=== PATIENT | female | born 1995 | race Hispanic/Latino ===

== ENCOUNTER 2017-07-03 23:00 | Emergency (ER) | payer OTHER ==
[2017-07-03 23:00] VITALS: BMI 19.3
[2017-07-03 23:12] VITALS: BP 117/78; PULSE 96; RESP 16; TEMP 98.2; O2SAT 97
--- NOTE | 2017-07-04 00:34 | C.PDOC ---
History Of Present Illness 22 y/o female, otherwise healthy, c/o runny nose, sneezing, body aches, ear pain , sore throat, and chest pain with cough for 2 days. Patient also reports a subjective fever. Denies abdominal pain, nausea, vomiting, or any other complaints. Time Seen by Provider: 07/04/17 00:25 Chief Complaint (Nursing): Cough, Cold, Congestion History Per: Patient History/Exam Limitations: no limitations Onset/Duration Of Symptoms: Days (2) Current Symptoms Are (Timing): Still Present Location Of Pain: Ear(s), Throat, Diffuse Myalgias Associated Symptoms: Myalgias. denies: Nausea, Vomiting Ear Symptoms: Bilateral: Ear Pain Severity: Mild Recent travel outside of the [place]: No Additional History Per: Patient Past Medical History Reviewed: Historical Data, Nursing Documentation, Vital Signs Vital Signs: Last Vital Signs Temp 98.2 F 07/03/17 23:08 Pulse 96 H 07/03/17 23:08 Resp 16 07/03/17 23:08 BP 117/78 07/03/17 23:08 Pulse Ox 97 07/04/17 02:57 Surgical History: Tonsillectomy Family History: States: Unknown Family Hx - Social History Hx Tobacco Use: Yes Hx Alcohol Use: Yes Hx Substance Use: Yes - Immunization History Hx Tetanus Toxoid Vaccination: Yes Hx Influenza Vaccination: No Hx Pneumococcal Vaccination: No Review Of Systems Constitutional: Positive for: Fever (Subjective), Other (Body aches) ENT: Positive for: Ear Pain, Nose Discharge, Throat Pain, Other (Sneezing) Cardiovascular: Positive for: Chest Pain Respiratory: Positive for: Cough Gastrointestinal: Negative for: Nausea, Vomiting, Abdominal Pain Physical Exam - Physical Exam Appears: Non-toxic, No Acute Distress Skin: Warm, Dry Head: Atraumatic, Normacephalic Ear(s): Bilateral: Normal Oral Mucosa: Moist Throat: Normal, No Erythema, No Exudate Neck: Supple Cardiovascular: Rhythm Regular Respiratory: Normal Breath Sounds, No Rales, No Rhonchi, No Wheezing Gastrointestinal/Abdominal: Soft, No Tenderness Neurological/Psych: Oriented x3, Normal Speech, Normal Cognition ED Course And Treatment O2 Sat by Pulse Oximetry: 97 (RA) Pulse Ox Interpretation: Normal Medical Decision Making Medical Decision Making: Impression: 22 y/o female, otherwise healthy, c/o runny nose, sneezing, body aches, ear pain, sore throat, and chest pain with cough for 2 days. Plans: * Tylenol Patient is in no acute distress and was instructed to follow up with PMD for further evaluation and to return if symptoms worsens. Disposition Counseled Patient/Family Regarding: Diagnosis, Need For Followup - Disposition Referrals: Ty Dunlap MD [Staff Provider] - [facility] [Outside] Disposition: HOME/ ROUTINE Disposition Time: 00:33 Condition: STABLE Additional Instructions: Take Tylenol or Motrin every 6 hours for pain, fever, body aches. Drink increased fluids. Robitussen DM or Mucinex for cough. Best rest. Follow up in Medical clinic. Instructions: Upper Respiratory Infection (ED) Forms: General Discharge Instructions, [facility] (Serbian), Work Excuse - Clinical Impression Clinical Impression: Upper respiratory infection - Scribe Statement The provider has reviewed the documentation as recorded by the Scribe Joann vergara All medical record entries made by the Scribe were at my direction and personally dictated by me. I have reviewed the chart and agree that the record accurately reflects my personal performance of the history, physical exam, medical decision making, and the department course for this patient. I have also personally directed, reviewed, and agree with the discharge instructions and disposition.
== END 2017-07-04 00:39 | disposition home or self-care (01) ==
LOC: C.ER 23:00
DX: J06.9 Acute upper respiratory infection, unspecified (principal); Z72.0 Tobacco use

== ENCOUNTER 2017-08-23 16:55 | Emergency (ER) | payer OTHER ==
[2017-08-23 16:56] VITALS: BMI 19.3
[2017-08-23 17:03] VITALS: RESP 18; TEMP 98.1
[2017-08-23 17:47] LABS: RBC URINE < 1 /hpf (0-3); URINE BACTERIA RARE (<OCC); URINE BILIRUBIN NEGATIVE (NEGATIVE); URINE BLOOD NEGATIVE (NEGATIVE); URINE COLOR Yellow (YELLOW); URINE GLUCOSE (UA) NORMAL (Normal); URINE KETONE NEGATIVE (NEGATIVE); URINE LEUKOCYTE ESTERASE NEG Leu/uL (Negative); URINE PROTEIN 1+ mg/dL (NEGATIVE); URINE UROBILINOGEN NORMAL mg/dL (0.2-1.0); WBC URINE 1 /hpf (0-5)
[2017-08-23] MEDS ORDERED: Sodium Chloride 0.9% 1,000 ML IV ONE (18:02)
[2017-08-23] MEDS ORDERED: Sodium Chloride 0.9% 1,000 ML ONE (18:34)
[2017-08-23 18:39] LABS: BASO # 0.1 K/uL (0.0-0.2); BASO % 0.5 % (0.0-2.0); EOS # 0.1 K/uL (0.0-0.7); EOS % 0.7 % (0.0-4.0); HEMATOCRIT 36.6 % (34.0-47.0); LYMPH # 1.9 K/uL (1.0-4.3); LYMPH % 14.8 % (20.0-40.0); MEAN CELL VOLUME 84.2 fL (81.0-99.0); MEAN CORPUSCULAR HEMOGLOBIN 28.4 pg (27.0-31.0); MEAN CORPUSCULAR HGB CONC 33.7 g/dL (33.0-37.0); MEAN PLATELET VOLUME 7.9 fL (7.2-11.7); MONO # 1.3 K/uL (0.0-0.8); MONO % 10.2 % (0.0-10.0); RED CELL DISTRIBUTION WIDTH 12.6 % (11.5-14.5); WHITE BLOOD COUNT 12.6 K/uL (4.8-10.8)
[2017-08-23 18:46] LABS: CHLORIDE 97 mmol/L (98-107); POTASSIUM 3.7 mmol/L (3.6-5.2); SODIUM 132 mmol/L (132-148)
[2017-08-23 18:48] LABS: BILIRUBIN,TOTAL 0.5 mg/dL (0.2-1.3); GFR AFRICAN-AMERICAN > 60
[2017-08-23 18:49] LABS: ALB/GLOB RATIO 1.5 (1.0-2.1); ALKALINE PHOSPHATASE 54 U/L (38-126); ALT/SGPT 31 U/L (9-52); AST/SGOT 17 U/L (14-36); BLOOD UREA NITROGEN 9 mg/dL (7-17); CARBON DIOXIDE 22 mmol/L (22-30); GLUCOSE,RANDOM 72 mg/dL (65-105); TOTAL PROTEIN 7.8 g/dL (6.3-8.3)
[2017-08-23 18:50] LABS: CALCIUM 9.2 mg/dl (8.6-10.4)
[2017-08-23 20:15] VITALS: BP 109/70; PULSE 103; O2SAT 99
--- NOTE | 2017-08-23 20:43 | US ---
EXAM: US First Trimester, Transabdominal CLINICAL HISTORY: 22 years old, female; Pain; complicated by abdominal or pelvic pain; Lower; First trimester; Gestational age or lmp: 8-14-17; ; Additional info: Pelvic pain, R/O ectopic TECHNIQUE: Real-time transabdominal obstetrical ultrasound of the maternal pelvis and a first trimester with image documentation. COMPARISON: No relevant prior studies available. FINDINGS: Gestation: Single live intrauterine gestation. heart rate of 123 beats per minute. Withee-rump length of 0.72 cm, correlating with gestational age of 6 weeks 4 days. Uterus/cervix: No subchorionic hemorrhage. No cervical dilatation or effacement. Ovaries: RIGHT ovary: Normal. LEFT ovary: Probable 2.0 x 2.2 x 1.9 cm corpus luteal cyst. No adnexal masses. Free fluid: No significant free fluid. IMPRESSION: 1. Single live intrauterine gestation. EXAM: US , Transvaginal CLINICAL HISTORY: 22 years old, female; Pain; complicated by abdominal or pelvic pain; Lower; First trimester; Gestational age or lmp: 8-14-17; ; Additional info: Pelvic pain, R/O ectopic TECHNIQUE: Real-time transvaginal obstetrical ultrasound of the maternal pelvis and a first trimester with image documentation. Transvaginal imaging was used for better evaluation of the fetus and adnexa. COMPARISON: No relevant prior studies available. FINDINGS: Gestation: Single live intrauterine gestation. heart rate of 123 beats per minute. Withee-rump length of 0.72 cm, correlating with gestational age of 6 weeks 4 days. Uterus/cervix: No subchorionic hemorrhage. No cervical dilatation or effacement. Ovaries: RIGHT ovary: Normal. LEFT ovary: Probable 2.0 x 2.2 x 1.9 cm corpus luteal cyst. No adnexal masses. Free fluid: No significant free fluid.
--- NOTE | 2017-08-23 20:58 | C.PDOC ---
Time Seen by Provider: 08/23/17 17:37 Chief Complaint (Nursing): Abdominal Pain History Per: Patient Onset/Duration Of Symptoms: Days (about 1 week), Waxing/Waning Current Symptoms Are (Timing): Still Present Severity: Moderate Location Of Pain/Discomfort: Suprapubic Quality Of Discomfort: Cramping Associated Symptoms: Nausea Alleviating Factors: None Additional History Per: Prior Records Abnormal Vaginal Bleeding: No Past Medical History Reviewed: Historical Data, Nursing Documentation, Vital Signs Vital Signs: Last Vital Signs Temp 98.1 F 08/23/17 20:14 Pulse 103 H 08/23/17 20:14 Resp 18 08/23/17 20:14 BP 109/70 08/23/17 20:14 Pulse Ox 99 08/23/17 20:14 - Medical History PMH: No Chronic Diseases Surgical History: Tonsillectomy Family History: States: Unknown Family Hx - Social History Hx Tobacco Use: No Hx Alcohol Use: Yes Hx Substance Use: No - Immunization History Hx Tetanus Toxoid Vaccination: Yes Hx Influenza Vaccination: No Hx Pneumococcal Vaccination: No Review Of Systems Except As Marked, All Systems Reviewed And Found Negative. Constitutional: Negative for: Fever Cardiovascular: Negative for: Chest Pain, Light Headedness Respiratory: Negative for: Shortness of Breath Gastrointestinal: Positive for: Nausea Genitourinary: Negative for: Dysuria, Vaginal Bleeding Musculoskeletal: Negative for: Neck Pain Skin: Negative for: Rash Neurological: Negative for: Weakness, Numbness Physical Exam - Physical Exam Appears: Non-toxic, No Acute Distress Skin: Normal Color, Warm, Dry, No Rash Head: Atraumatic, Normacephalic Eye(s): bilateral: PERRL, EOMI Oral Mucosa: Moist Neck: Normal ROM, Supple Cardiovascular: Rhythm Regular Respiratory: Normal Breath Sounds, No Accessory Muscle Use Gastrointestinal/Abdominal: Soft, Tenderness (mild suprapubic), No Guarding, No Rebound Back: No CVA Tenderness Extremity: Normal ROM Neurological/Psych: Oriented x3, Normal Motor, Normal Sensation ED Course And Treatment - Laboratory Results Result Diagrams: 08/23/17 18:33 08/23/17 18:33 Urine POC: Positive O2 Sat by Pulse Oximetry: 99 Pulse Ox Interpretation: Normal - CT Scan/US Pelvic US Other Rad Studies (CT/US): Read By Radiologist, Radiology Report Reviewed CT/US Interpretation: IMPRESSION: 1. Single live intrauterine gestation. Reassessment Condition: Improved Disposition Counseled Patient/Family Regarding: Studies Performed, Diagnosis, Need For Followup, Rx Given - Disposition Disposition: HOME/ ROUTINE Disposition Time: 20:58 Condition: STABLE Additional Instructions: Follow up with your Counting Machine Operator doctor for further evaluation and treatment. Return to the ER if you develop fever, vaginal bleeding, dizziness, worsening of symptoms or if you have any other concerns. Prescriptions: Ondansetron [Zofran] 4 mg PO Q8H PRN #15 tab PRN Reason: Nausea/Vomiting Vit Calc,Iron,Folic [ Vitamins] 1 tab PO DAILY #30 tablet Instructions: Abdominal Pain in (ED) - Clinical Impression Clinical Impression: Abdominal pain during in first trimester
== END 2017-08-23 21:05 | disposition home or self-care (01) ==
LOC: C.ER 16:55
DX: O26.891 Other specified pregnancy related conditions, first trimester (principal); R10.9 Unspecified abdominal pain; Z3A.01 Less than 8 weeks gestation of pregnancy
CPT/HCPCS: 76805; 76817; 80053; 81001; 84702; 84703; 85025; 86850; 86900; 96360; 99285; J7040

== ENCOUNTER 2017-09-04 17:05 | Emergency (ER) | payer OTHER ==
[2017-09-04 17:13] VITALS: BMI 20.9
[2017-09-04 17:14] VITALS: RESP 18; TEMP 97.7
--- NOTE | 2017-09-04 18:08 | C.PDOC ---
History Of Present Illness 22 y/o female, approx 7 weeks preg, comes to ED with cough x 2 weeks, c/o cramps in abdomen when coughing. pt sts cough worse at night, has nasal congestion and post nasal drip. denies fever and chills. denies vaginal bleeding. pt reports she coughed hard today and saw some streaks of blood in sputum. pt sts was called today by [facility] and after telling them her story , she was instructed to return to ED for eval. pt has appt with pmd on Saturday, and pb/reel operator on . Time Seen by Provider: 09/04/17 17:26 Chief Complaint (Nursing): Cough, Cold, Congestion History Per: Patient History/Exam Limitations: no limitations Onset/Duration Of Symptoms: Days Current Symptoms Are (Timing): Still Present Sick Contacts (Context): None Associated Symptoms: Cough. denies: Vomiting, Diarrhea Recent travel outside of the [place]: No Past Medical History Reviewed: Historical Data, Nursing Documentation, Vital Signs Vital Signs: Last Vital Signs Temp 97.7 F 09/04/17 17:13 Pulse 83 09/04/17 17:13 Resp 18 09/04/17 17:13 BP 102/68 09/04/17 17:13 Pulse Ox 97 09/04/17 18:11 - Medical History PMH: No Chronic Diseases Surgical History: Tonsillectomy Family History: States: Unknown Family Hx - Social History Hx Tobacco Use: No Hx Alcohol Use: No Hx Substance Use: No - Immunization History Hx Tetanus Toxoid Vaccination: No Hx Influenza Vaccination: No Hx Pneumococcal Vaccination: No Review Of Systems Constitutional: Negative for: Fever, Chills ENT: Positive for: Nose Congestion Respiratory: Positive for: Cough. Negative for: Shortness of Breath, Wheezing Gastrointestinal: Negative for: Vomiting, Abdominal Pain Genitourinary: Negative for: Vaginal Discharge, Vaginal Bleeding Skin: Negative for: Rash Physical Exam - Physical Exam Appears: Non-toxic, No Acute Distress Skin: Normal Color, Warm, Dry Head: Atraumatic, Normacephalic Oral Mucosa: Moist Chest: Symmetrical Cardiovascular: Rhythm Regular Respiratory: Normal Breath Sounds, No Rales, No Rhonchi, No Wheezing Gastrointestinal/Abdominal: Normal Exam, Bowel Sounds, Soft, No Tenderness, No Guarding, No Rebound Back: Normal Inspection Extremity: Normal ROM, Capillary Refill (< 2 sec. ) Neurological/Psych: Oriented x3 ED Course And Treatment O2 Sat by Pulse Oximetry: 97 (RA) Pulse Ox Interpretation: Normal Medical Decision Making Medical Decision Making: discussed with pt that cough medicine not recommended during ; will put pt on claritin (she has at home) to help decrease nasal congestions and post nasal drip to help decrease cough and to follow up with pmd and online facilitator next week as scheduled. Disposition Counseled Patient/Family Regarding: Diagnosis, Need For Followup, Rx Given - Disposition Referrals: Ty Dunlap MD [Staff Provider] - Disposition: HOME/ ROUTINE Disposition Time: 18:15 Condition: STABLE Additional Instructions: Please drink increased fluids such as water. Take Loratidine (generic for claritin) once a day to help dry up post nasal drip and cough;. Follow up with Dr Dunlap on Saturday and your eeler on as already scheduled. Prescriptions: Loratadine 10 mg PO DAILY #30 tablet Forms: General Discharge Instructions, [facility] (Mexican) - Clinical Impression Clinical Impression: Bronchitis - PA / GRAIN ELEVATOR AGENT / Resident Statement MD/DO has reviewed & agrees with the documentation as recorded. - Scribe Statement The provider has reviewed the documentation as recorded by the Scribe SM All medical record entries made by the Scribe were at my direction and personally dictated by me. I have reviewed the chart and agree that the record accurately reflects my personal performance of the history, physical exam, medical decision making, and the department course for this patient. I have also personally directed, reviewed, and agree with the discharge instructions and disposition.
[2017-09-04 18:25] VITALS: BP 119/65; PULSE 72; O2SAT 98
== END 2017-09-04 18:25 | disposition home or self-care (01) ==
LOC: C.ER 17:05
DX: J40 Bronchitis, not specified as acute or chronic (principal)

== ENCOUNTER 2018-08-14 23:38 | Emergency (ER) | payer OTHER ==
[2018-08-14 23:38] VITALS: BMI 20.9
[2018-08-14 23:46] VITALS: BP 121/78; PULSE 90; RESP 16; TEMP 98.6; O2SAT 97
--- NOTE | 2018-08-15 00:36 | C.PDOC ---
History Of Present Illness 23 year old female presents to the ER with a complaint of nasal congestion, runny nose, and cough for the past week associated with post tussive vomiting. Patient has been taking tylenol and mucinex at home with no relief. Patient notes she has a child at home who had similar symptoms last week. Denies fever, chills, diarrhea, rash, or recent travel. <Kanchan Ruvalcaba - Last Filed: 08/15/18 06:07> History Per: Patient History/Exam Limitations: no limitations Onset/Duration Of Symptoms: Days (1 week) Current Symptoms Are (Timing): Still Present Recent travel outside of the [place]: No <Kanchan Ruvalcaba - Last Filed: 08/15/18 06:07> <Stacia Kulkarni - Last Filed: 08/16/18 06:35> Time Seen by Provider: 08/14/18 23:52 Chief Complaint (Nursing): Cough, Cold, Congestion Past Medical History Reviewed: Historical Data, Nursing Documentation, Vital Signs Vital Signs: Last Vital Signs Temp 98.6 F 08/14/18 23:43 Pulse 90 08/14/18 23:43 Resp 16 08/14/18 23:43 BP 121/78 08/14/18 23:43 Pulse Ox 97 08/14/18 23:43 Surgical History: Tonsillectomy Family History: States: Unknown Family Hx - Social History Hx Tobacco Use: No Hx Alcohol Use: No Hx Substance Use: Yes - Immunization History Hx Tetanus Toxoid Vaccination: No Hx Influenza Vaccination: No Hx Pneumococcal Vaccination: No <Kanchan Ruvalcaba - Last Filed: 08/15/18 06:07> Vital Signs: Last Vital Signs Temp 98.6 F 08/14/18 23:43 Pulse 90 08/14/18 23:43 Resp 16 08/14/18 23:43 BP 121/78 08/14/18 23:43 Pulse Ox 97 08/15/18 06:07 <Stacia Kulkarni - Last Filed: 08/16/18 06:35> Review Of Systems Constitutional: Negative for: Fever, Chills ENT: Positive for: Nose Discharge, Nose Congestion Respiratory: Positive for: Cough Gastrointestinal: Positive for: Vomiting (Post tussive) Skin: Negative for: Rash <Kanchan Ruvalcaba - Last Filed: 08/15/18 06:07> Physical Exam - Physical Exam Appears: Non-toxic Skin: Normal Color, Warm, Dry Head: Atraumatic, Normacephalic Eye(s): bilateral: Normal Inspection Ear(s): Bilateral: Normal Nose: Normal Oral Mucosa: Moist Throat: Normal, No Erythema, No Exudate Neck: Normal, Supple Chest: Symmetrical, No Tenderness Cardiovascular: Rhythm Regular Respiratory: Normal Breath Sounds, No Rales, No Rhonchi, No Wheezing Gastrointestinal/Abdominal: Soft, No Tenderness Extremity: Normal ROM (x4) Neurological/Psych: Oriented x3, Normal Speech <Kanchan Ruvalcaba - Last Filed: 08/15/18 06:07> ED Course And Treatment O2 Sat by Pulse Oximetry: 97 (Room air) Pulse Ox Interpretation: Normal <Kanchan Ruvalcaba Last Filed: 08/15/18 06:07> Medical Decision Making Medical Decision Making: Claritin and prednisone administered. Patient is resting comfortably in the ER in no acute distress, vitals are stable, will discharge home with Rx and instructions to follow up with PMD. <Kanchan Ruvalcaba - Last Filed: 08/15/18 06:07> Disposition - Disposition Disposition Time: 00:33 - POA Present On Arrival: None <Kanchan Ruvalcaba - Last Filed: 08/15/18 06:07> <Stacia Kulkarni A - Last Filed: 08/16/18 06:35> - Disposition Referrals: Ty Dunlap MD [Staff Provider] - Disposition: HOME/ ROUTINE Condition: STABLE Additional Instructions: Follow up with the medical doctor within 1-2 days, Return if worsened. Prescriptions: Loratadine/Pseudoephedrine [Loratadine-D 24Hr Tablet] 1 each PO DAILY #10 tab.er.24h predniSONE [Prednisone] 10 mg PO BID #10 tab Instructions: Acute Bronchitis Forms: [facility] (Greenlandic) - Clinical Impression Clinical Impression: Post-nasal drip - Scribe Statement The provider has reviewed the documentation as recorded by the Scribe Ty Bennett All medical record entries made by the Scribe were at my direction and personally dictated by me. I have reviewed the chart and agree that the record accurately reflects my personal performance of the history, physical exam, medical decision making, and the department course for this patient. I have also personally directed, reviewed, and agree with the discharge instructions and disposition. <Kanchan Ruvalcaba - Last Filed: 08/15/18 06:07> - PA / FREELANCE WRITER / Resident Statement /DO has reviewed & agrees with the documentation as recorded. <Stacia Kulkarni - Last Filed: 08/16/18 06:35>
== END 2018-08-15 00:39 | disposition home or self-care (01) ==
LOC: C.ER 23:38
DX: R09.82 Postnasal drip (principal)

== ENCOUNTER 2018-09-13 13:37 | Emergency (ER) | payer OTHER ==
[2018-09-13 13:57] VITALS: BMI 23.3
[2018-09-13] MEDS ORDERED: Sodium Chloride 0.9% 1,000 ML IV ONE (14:04)
[2018-09-13 14:21] LABS: BASO # 0.1 K/uL (0.0-0.2); BASO % 0.5 % (0.0-2.0); EOS # 0.1 K/uL (0.0-0.7); EOS % 0.9 % (0.0-4.0); HEMOGLOBIN 12.9 g/dL (11.0-16.0); LYMPH # 2.5 K/uL (1.0-4.3); LYMPH % 24.4 % (20.0-40.0); MEAN CELL VOLUME 79.7 fL (81.0-99.0); MEAN CORPUSCULAR HEMOGLOBIN 26.8 pg (27.0-31.0); MEAN CORPUSCULAR HGB CONC 33.6 g/dL (33.0-37.0); MEAN PLATELET VOLUME 7.9 fL (7.2-11.7); MONO # 0.8 K/uL (0.0-0.8); MONO % 7.9 % (0.0-10.0); NEUT # 6.9 K/uL (1.8-7.0); NEUT % 66.3 % (50.0-75.0); NRBC % 0.1 % (0.0-2.0); RBC 4.81 Mil/uL (3.80-5.20); RED CELL DISTRIBUTION WIDTH 12.7 % (11.5-14.5); WHITE BLOOD COUNT 10.4 K/uL (4.8-10.8)
[2018-09-13 14:26] LABS: SQUAMOUS EPITHIAL 6 /hpf (0-5); URINE BACTERIA RARE (<OCC); URINE BILIRUBIN NEGATIVE (NEGATIVE); URINE BLOOD NEGATIVE (NEGATIVE); URINE CLARITY Hazy (Clear); URINE COLOR Yellow (YELLOW); URINE GLUCOSE (UA) NORMAL (Normal); URINE LEUKOCYTE ESTERASE 2+ Leu/uL (Negative); URINE PROTEIN NEGATIVE (NEGATIVE); URINE UROBILINOGEN NORMAL mg/dL (0.2-1.0)
--- NOTE | 2018-09-13 14:34 | C.PDOC ---
History Of Present Illness 23 year old female with family history of diabetes presents to ED complaining of intense cramps to her lower abdomen since her last period began at 08/20/18. Patient reports the period lasted a normal 7 days, but the cramping persisted. Patient also complains of feeling fatigued for the past 2-3 weeks. Patient reports having multiple migraines a day that last for about 30 minutes for the past 2-3 weeks. Patient states the migraines feel similar to when she use to get them as a teenager. Patient states she has been taking Tylenol and Motrin for the pain. Patient reports a loss of appetite and after eating breakfast this morning she felt her head was heavy. Patient states she sat down on her bed and passed out. She states she does not remember losing consciousness, but when her boyfriend woke her up she decided to come to the ED. Patient states she feels "woozy" after the nurse gena blood and she does not usually get woozy from that. Patient admits to smoking marijuana before Halloween, but denies fever, chills, cough, shortness of breath, chest pain, nausea, vomiting, diarrhea, weakness, numbness. Patient has a medical history tonsillectomy. PMD: Dr. Ty TANN: Dr. Rodrigo Mcdonald Time Seen by Provider: 09/13/18 14:03 Chief Complaint (Nursing): Syncope History Per: Patient History/Exam Limitations: no limitations Onset/Duration Of Symptoms: Days Current Symptoms Are (Timing): Still Present Past Medical History Reviewed: Historical Data, Nursing Documentation, Vital Signs Vital Signs: Last Vital Signs Temp 98.3 F 09/13/18 13:57 Pulse 98 H 09/13/18 13:57 Resp 18 09/13/18 13:57 BP 132/91 H 09/13/18 13:57 Pulse Ox 99 09/13/18 13:57 - Medical History PMH: Migraine Surgical History: Tonsillectomy Family History: States: No Known Family Hx - Social History Hx Tobacco Use: No Hx Alcohol Use: No Hx Substance Use: No - Immunization History Hx Tetanus Toxoid Vaccination: No Hx Influenza Vaccination: No Hx Pneumococcal Vaccination: No Review Of Systems Except As Marked, All Systems Reviewed And Found Negative. Constitutional: Negative for: Fever, Chills Cardiovascular: Negative for: Chest Pain Respiratory: Negative for: Cough, Shortness of Breath Gastrointestinal: Positive for: Abdominal Pain (lower abdominal cramping pain. ). Negative for: Nausea, Vomiting, Diarrhea Neurological: Negative for: Weakness, Numbness Physical Exam - Physical Exam Appears: Non-toxic, No Acute Distress Skin: Warm, Dry, Pale (Slightly pale.) Head: Atraumatic, Normacephalic Eye(s): bilateral: PERRL, EOMI Oral Mucosa: Moist Neck: Supple Chest: Symmetrical, No Deformity Cardiovascular: Rhythm Regular, No Murmur Respiratory: Normal Breath Sounds, No Rales, No Rhonchi, No Wheezing Gastrointestinal/Abdominal: Soft, Tenderness (Tenderness to right and left side of lower abdomen. ) Neurological/Psych: Oriented x3 ED Course And Treatment - Laboratory Results Result Diagrams: 09/13/18 14:17 09/13/18 14:17 O2 Sat by Pulse Oximetry: 99 (RA) Pulse Ox Interpretation: Normal Medical Decision Making Medical Decision Making: Initial plan: * EKG * Labs * Pepcid * Urinalysis Disposition Counseled Patient/Family Regarding: Studies Performed, Diagnosis, Need For Followup - Disposition Disposition: HOME/ ROUTINE Disposition Time: 16:40 Condition: IMPROVED Additional Instructions: Mr. Zabala, thank you for letting us take care of you today. Return to the ER if your symptoms worsen, or if any problems. Take the medication listed below as prescribed. Follow up with your PERSONAL SECURITY SPECIALIST doctor this week for a re-evaluation. Prescriptions: Cephalexin [cephalexin] 1 tab PO BID #20 cap Naproxen [Anaprox DS] 1 tab PO Q12 PRN #20 tab PRN Reason: Pain, Moderate (4-7) Instructions: Urinary Tract Infections in Adults Forms: [facility] (Czech) Print Language: FAROESE - POA Present On Arrival: None - Clinical Impression Clinical Impression: Urinary tract infection - Scribe Statement The provider has reviewed the documentation as recorded by the Shahzad Fowlered Provider Attestation: All medical record entries made by the Shahzad were at my direction and personally dictated by me. I have reviewed the chart and agree that the record accurately reflects my personal performance of the history, physical exam, medical decision making, and the department course for this patient. I have also personally directed, reviewed, and agree with the discharge instructions and disposition.
[2018-09-13 14:53] LABS: ALB/GLOB RATIO 1.5 (1.0-2.1); ALBUMIN 4.5 g/dL (3.5-5.0); ALT/SGPT 27 U/L (9-52); AST/SGOT 18 U/L (14-36); BLOOD UREA NITROGEN 12 mg/dL (7-17); CALCIUM 9.6 mg/dl (8.6-10.4); GFR NON-AFRICAN AMERICAN > 60; LIPASE 109 U/L (23-300)
[2018-09-13 16:52] VITALS: BP 133/82; PULSE 88; RESP 20; TEMP 99.3; O2SAT 100
--- NOTE | 2018-09-16 15:54 | CARD ---
APPROVED REPORT Date of service: 09/13/2018 EKG Measurement Heart [id number] <Conclusion> Normal sinus rhythm Normal ECG
== END 2018-09-13 16:52 | disposition home or self-care (01) ==
LOC: C.ER 13:37
DX: N39.0 Urinary tract infection, site not specified (principal)
CPT/HCPCS: 80053; 81001; 82948; 83690; 85025; 93005; 96360; 99285; J7030

== ENCOUNTER 2018-10-19 03:19 | Emergency (ER) | payer OTHER ==
[2018-10-19 03:20] VITALS: BMI 23.3
[2018-10-19] MEDS ORDERED: Tetanus/Diphtheria Toxoids 0.5 ml Syringe IM ONE ×2 (03:43→04:12)
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
[2018-10-19] MEDS ORDERED: Bacitracin 500 Units/gm Oint Foilpak UD TOP ONE (04:06)
[2018-10-19] MEDS ORDERED: Bacitracin 500 Units/gm Oint Foilpak UD ONE (04:12)
[2018-10-19 04:31] VITALS: BP 117/67; PULSE 76; RESP 20; TEMP 98.6; O2SAT 99
== END 2018-10-19 04:31 | disposition home or self-care (01) ==
LOC: C.ER 03:19
DX: T23.102A Burn of first degree of left hand, unspecified site, initial encounter (principal); X10.2XXA Contact with fats and cooking oils, initial encounter; Z23 Encounter for immunization